=== PATIENT | male | born 1940 | race Caucasian/White ===

== ENCOUNTER 2017-03-31 19:59 | Inpatient (IN) | payer MEDICARE ==
[2017-03-31] MEDS ORDERED: Sodium Chloride 0.9% 1,000 ML IV ONE ×2 (20:26→20:27)
[2017-03-31] MEDS ORDERED: Iohexol 240 (50 ml) PO ONE (20:27)
--- NOTE | 2017-03-31 20:30 | C.PDOC ---
History Of Present Illness 76 year old male presents to the ED c/o abdominal pain associated with nausea, vomit, and diarrhea that started today after he ate sardines. Chief Complaint (Nursing): Abdominal Pain History Per: Patient History/Exam Limitations: no limitations Onset/Duration Of Symptoms: Hrs Current Symptoms Are (Timing): Still Present Context: Food (Sardines) Location Of Pain/Discomfort: Epigastric Quality Of Discomfort: "Pain" Associated Symptoms: Nausea, Vomiting, Diarrhea Exacerbating Factors: Food Alleviating Factors: None Recent travel outside of the [place]: No Additional History Per: Patient Past Medical History Reviewed: Historical Data, Nursing Documentation, Vital Signs Vital Signs: Last Vital Signs Temp 97.7 F 03/31/17 20:09 Pulse 108 H 03/31/17 20:09 Resp 20 03/31/17 20:09 BP 108/70 03/31/17 20:09 Pulse Ox 98 04/01/17 01:11 - Medical History PMH: Diabetes, Hypercholesterolemia Denies: Chronic Kidney Disease Surgical History: No Surg Hx - [facility] Procedures DILATION OF 1 COR ART WITH DRUG-ELUT INTRALUM, PERC APPROACH (03/01/15) INTRODUCTION OF VASOPRESSOR INTO PERIPH VEIN, PERC APPROACH (03/01/15) MEASURE CARDIAC SAMPL & PRESSURE, BILATERAL, PERC (03/01/15) PLAIN RADIOGRAPHY OF SINGLE COR ART USING OTH CONTRAST (03/01/15) Family History: States: Unknown Family Hx - Social History Hx Tobacco Use: No Hx Alcohol Use: No Hx Substance Use: No - Immunization History Hx Tetanus Toxoid Vaccination: No Hx Influenza Vaccination: No Hx Pneumococcal Vaccination: No Review Of Systems Constitutional: Negative for: Fever, Chills, Sweats Cardiovascular: Negative for: Chest Pain, Palpitations Respiratory: Negative for: Cough, Shortness of Breath Gastrointestinal: Positive for: Nausea, Vomiting, Abdominal Pain, Diarrhea Genitourinary: Negative for: Dysuria, Hematuria Neurological: Negative for: Weakness, Numbness Physical Exam - Physical Exam Appears: In Acute Distress (Moderate ) Skin: Normal Color, Warm, Dry Head: Atraumatic, Normacephalic Oral Mucosa: Moist Neck: Normal ROM, Supple Chest: Symmetrical Cardiovascular: Rhythm Regular, No Murmur Respiratory: Normal Breath Sounds, No Rales, No Rhonchi, No Wheezing Gastrointestinal/Abdominal: Bowel Sounds (hyperactive ), Tenderness (Mid abdomen , epigastric area), No Guarding, No Rebound Extremity: Normal ROM, No Pedal Edema, No Calf Tenderness, No Swelling Neurological/Psych: Oriented x3, Normal Speech, Normal Cognition Gait: Steady ED Course And Treatment - Laboratory Results Result Diagrams: 03/31/17 21:11 03/31/17 21:11 O2 Sat by Pulse Oximetry: 98 (On RA) Pulse Ox Interpretation: Normal - CT Scan/US CT abdo/pelvis Other Rad Studies (CT/US): Interpreted By Me, Read By Radiologist, Radiology Report Reviewed CT/US Interpretation: EXAM: CT Abdomen and Pelvis With Intravenous Contrast. CLINICAL HISTORY: 76 years old, male; Pain and signs and symptoms; Vomiting; Abdominal pain; Localized; Upper;. Additional info: Upper and n midabdomnal pain. TECHNIQUE: Axial computed tomography images of the abdomen and pelvis with intravenous contrast. All CT. scans at this facility use one or more dose reduction techniques, viz.: automated exposure control;. ma/kV adjustment per patient size (including targeted exams where dose is matched to indication; i.e. head); or iterative reconstruction technique. Coronal and sagittal reformatted images were created and reviewed. CONTRAST: 100 mL of omnipaque 300 administered intravenously. COMPARISON: No relevant prior studies available. FINDINGS: Lower thorax: The bilateral lung bases are clear. ABDOMEN: Liver: steatosis. Gallbladder and bile ducts: The gallbladder is only minimally distended, without calcified stones. No. significant intra- or extrahepatic biliary ductal dilation. Pancreas: Enhances homogeneously. No ductal dilation. No discrete mass. Spleen: No acute findings. Adrenals: No acute findings. Kidneys and ureters: No acute findings. No hydronephrosis or renal calculi. No discrete solid mass. PELVIS: Bladder: No acute findings. Reproductive: A penile prosthetic is identified with a pump extending into the right hemipelvis. Appendix: The appendix is of normal caliber (series 3, image 130) . ABDOMEN and PELVIS: Stomach and bowel: Moderate gastric distention, with an air-fluid level of contrast. No oral contrast is. identified beyond the first portion of the duodenum. No mucosal thickening. A fat containing left. inguinal hernia is identified. Peritoneum: No significant fluid collection. No free air. Lymph nodes: No pathologically enlarged lymph nodes. Vasculature: Calcified atherosclerotic disease. Bones: No acute fracture. IMPRESSION: Moderate gastric distention with an air-fluid level of contrast without oral contrast extending beyond. the first portion of the duodenum. Medical Decision Making Medical Decision Making: Impression : 76 y/o male with abdominal pain Plan: * CT abdomen/pelvis ordered * Blood work ordered * IV fluids, Dilaudid 2 mg IVP, Omnipaque 50 ml PO, Zofran 4 mg IVP given * UA ordered Patient was moved after results came back 1000 cc taken from [facility], called Dr. Duarte and awaiting fro response. Disposition Discussed With Dr.: Manpreet Duarte Jr. Doctor Will See Patient In The: Hospital Counseled Patient/Family Regarding: Diagnosis - Disposition Referrals: Manpreet Duarte Jr., MD [Medical Doctor] - Disposition: HOSPITALIZED Disposition Time: 01:10 Condition: STABLE Forms: [facility] (Kyrgyz) - POA Present On Arrival: None - Clinical Impression Clinical Impression: Abdominal pain, Gastric outlet obstruction - Scribe Statement The provider has reviewed the documentation as recorded by the Scribe Vinay Steinberg All medical record entries made by the Scribe were at my direction and personally dictated by me. I have reviewed the chart and agree that the record accurately reflects my personal performance of the history, physical exam, medical decision making, and the department course for this patient. I have also personally directed, reviewed, and agree with the discharge instructions and disposition.
[2017-03-31 21:14] LABS: BASO % 0.3 % (0.0-2.0); EOS # 0.3 K/uL (0.0-0.7); EOS % 3.6 % (0.0-4.0); HEMATOCRIT 49.7 % (35.0-51.0); LYMPH # 0.8 K/uL (1.0-4.3); LYMPH % 11.3 % (20.0-40.0); MEAN CELL VOLUME 88.2 fL (80.0-94.0); MEAN CORPUSCULAR HEMOGLOBIN 29.9 pg (27.0-31.0); MEAN CORPUSCULAR HGB CONC 33.9 g/dL (33.0-37.0); MEAN PLATELET VOLUME 8.4 fL (7.2-11.7); MONO # 0.3 K/uL (0.0-0.8); MONO % 4.4 % (0.0-10.0); RED CELL DISTRIBUTION WIDTH 13.5 % (11.5-14.5); WHITE BLOOD COUNT 7.2 K/uL (4.8-10.8)
[2017-03-31] MEDS ORDERED: Sodium Chloride 0.9% 1,000 ML ONE ×2 (21:15)
[2017-03-31] MEDS ORDERED: Iohexol 240 (50 ml) ONE (21:24)
[2017-03-31 21:26] LABS: ALB/GLOB RATIO 1.6 (1.0-2.1); ALKALINE PHOSPHATASE 81 U/L (38-126); ALT/SGPT 113 U/L (21-72); AST/SGOT 60 U/L (17-59); BILIRUBIN,TOTAL 1.4 mg/dL (0.2-1.3); BLOOD UREA NITROGEN 13 mg/dL (9-20); CALCIUM 8.9 mg/dl (8.6-10.4); CARBON DIOXIDE 27 mmol/L (22-30); CHLORIDE 101 mmol/L (98-107); GFR AFRICAN-AMERICAN > 60; GLUCOSE,RANDOM 112 mg/dL (75-110); POTASSIUM 4.5 mmol/L (3.6-5.2); SODIUM 136 mmol/L (132-148)
[2017-03-31] MEDS ORDERED: Iohexol 300 100 ML IJ ONE (21:52)
--- NOTE | 2017-03-31 23:27 | CT ---
EXAM: CT Abdomen and Pelvis With Intravenous Contrast CLINICAL HISTORY: 76 years old, male; Pain and signs and symptoms; Vomiting; Abdominal pain; Localized; Upper; Additional info: Upper and n midabdomnal pain TECHNIQUE: Axial computed tomography images of the abdomen and pelvis with intravenous contrast. All CT scans at this facility use one or more dose reduction techniques, viz.: automated exposure control; ma/kV adjustment per patient size (including targeted exams where dose is matched to indication; i.e. head); or iterative reconstruction technique. Coronal and sagittal reformatted images were created and reviewed. CONTRAST: 100 mL of omnipaque 300 administered intravenously. COMPARISON: No relevant prior studies available. FINDINGS: Lower thorax: The bilateral lung bases are clear. ABDOMEN: Liver: steatosis. Gallbladder and bile ducts: The gallbladder is only minimally distended, without calcified stones. No significant intra- or extrahepatic biliary ductal dilation. Pancreas: Enhances homogeneously. No ductal dilation. No discrete mass. Spleen: No acute findings. Adrenals: No acute findings. Kidneys and ureters: No acute findings. No hydronephrosis or renal calculi. No discrete solid mass. PELVIS: Bladder: No acute findings. Reproductive: A penile prosthetic is identified with a pump extending into the right hemipelvis. Appendix: The appendix is of normal caliber (series 3, image 130) . ABDOMEN and PELVIS: Stomach and bowel: Moderate gastric distention, with an air-fluid level of contrast. No oral contrast is identified beyond the first portion of the duodenum. No mucosal thickening. A fat containing left inguinal hernia is identified. Peritoneum: No significant fluid collection. No free air. Lymph nodes: No pathologically enlarged lymph nodes. Vasculature: Calcified atherosclerotic disease. Bones: No acute fracture. IMPRESSION: Moderate gastric distention with an air-fluid level of contrast without oral contrast extending beyond the first portion of the duodenum.
--- NOTE | 2017-04-01 01:30 | CP.PCM.HP ---
History of Present Illness - History of Present Illness History of Present Illness: CC: "My stomach started hurting after eating sardines" HPI: Patient is a 76 year old male, with PMHx of impaired glucose tolerance , STEMI, CAD, and hyperlipidemia, presenting to [facility] complaining of abdominal pain. Patient reports abdominal pain began shortly after "eating a can of sardines around 9am." He states he began to feel pain located in his epigastric area, that has worsened throughout the day. He describes the pain as a constant "aching pain in his belly" and rated the initial pain as 8/10 on the severity scale. The pain also became associated with nausea, and 3-4 episodes of non-bloody vomiting, as well as diarrhea 2-3 times. He attempted to ameliorate symptoms with milk of magnesia but when his symptoms did not improve he decided to go to the ED. Patient denies fever, chills, chest pain, palpitatations, hematochezia, hemoptysis, hematuria. 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 Allergies: NKDA Home meds: ASA 325mg Daily, Atorvastatin 40mg Daily Present on Admission - Present on Admission Any Indicators Present on Admission: No Review of Systems - Constitutional Constitutional: absent: Chills, Fever - EENT Eyes: absent: Change in Vision Ears: absent: Decreased Hearing - Cardiovascular Cardiovascular: absent: Chest Pain, Chest Pain at Rest, Dyspnea, Dyspnea on Exertion - Respiratory Respiratory: absent: Cough, Hemoptysis, Chest Congestion - Gastrointestinal Gastrointestinal: Abdominal Pain, Cramping, Diarrhea, Nausea, Vomiting - Genitourinary Genitourinary: absent: Dysuria - Integumentary Integumentary: absent: Dry Skin, Wounds - Neurological Neurological: absent: Confusion, Tingling, Weakness - Psychiatric Psychiatric: absent: Anxiety, Depression - Endocrine Endocrine: absent: Polydipsia, Polyphagia, Polyuria Past Patient History - Past Medical History & Family History Past Medical History?: Yes - Past Social History Smoking Status: Never Smoked - CARDIAC Hx Hypercholesterolemia: Yes - PULMONARY Hx Respiratory Disorders: No - NEUROLOGICAL Hx Neurological Disorder: No - HEENT Hx HEENT Problems: No - RENAL Hx Chronic Kidney Disease: No - ENDOCRINE/METABOLIC Hx Endocrine Disorders: No - HEMATOLOGICAL/ONCOLOGICAL Hx Blood Disorders: No - INTEGUMENTARY Hx Dermatological Problems: No - MUSCULOSKELETAL/RHEUMATOLOGICAL Hx Musculoskeletal Disorders: No - GASTROINTESTINAL Hx Gastrointestinal Disorders: No - GENITOURINARY/GYNECOLOGICAL Hx Genitourinary Disorders: No - PSYCHIATRIC Hx Substance Use: No - SURGICAL HISTORY Hx Surgeries: No - ANESTHESIA Hx Anesthesia: No Meds Allergies/Adverse Reactions: Allergies Allergy/AdvReac Type Severity Reaction Status Date / Time No Known Allergies Allergy Unverified 01/11/13 13:46 Physical Exam - Constitutional Appears: Non-toxic, No Acute Distress - Head Exam Head Exam: ATRAUMATIC, NORMOCEPHALIC - Eye Exam Eye Exam: EOMI, Normal appearance - ENT Exam ENT Exam: Mucous Membranes Moist Additional comments: NGT placed - ~1000cc drainage - Respiratory Exam Respiratory Exam: Clear to Auscultation Bilateral, NORMAL BREATHING PATTERN. absent: Rales, Rhonchi, Wheezes - Cardiovascular Exam Cardiovascular Exam: REGULAR RHYTHM, +S1, +S2. absent: Systolic Murmur - GI/Abdominal Exam GI & Abdominal Exam: Soft, Tenderness (epigastric area). absent: Distended, Guarding, Rebound, Rigid - Extremities Exam Extremities exam: Positive for: normal inspection. Negative for: pedal edema, tenderness - Back Exam Back exam: absent: CVA tenderness (L), CVA tenderness (R) - Neurological Exam Neurological exam: Alert, Oriented x3 - Psychiatric Exam Psychiatric exam: Normal Affect, Normal Mood - Skin Skin Exam: Dry, Normal Color, Warm Results - Vital Signs Recent Vital Signs: Last Vital Signs Temp 97.7 F 03/31/17 20:09 Pulse 108 H 03/31/17 20:09 Resp 20 03/31/17 20:09 BP 108/70 03/31/17 20:09 Pulse Ox 98 04/01/17 01:12 - Labs Result Diagrams: 04/01/17 08:12 03/31/17 21:11 Labs: Laboratory Results - last 24 hr 03/31/17 03/31/17 21:11 21:11 WBC 7.2 RBC 5.63 Hgb 16.8 D Hct 49.7 MCV 88.2 MCH 29.9 MCHC 33.9 RDW 13.5 Plt Count 184 MPV 8.4 Neut % (Auto) 80.4 H Lymph % (Auto) 11.3 L Haralson % (Auto) 4.4 Eos % (Auto) 3.6 Baso % (Auto) 0.3 Neut # 5.8 Lymph # 0.8 L Haralson # 0.3 Eos # 0.3 Baso # 0.0 Sodium 136 Potassium 4.5 Chloride 101 Carbon Dioxide 27 Anion Gap 13 BUN 13 Creatinine 0.9 Est GFR ( Amer) > 60 Est GFR (Non-Af Amer) > 60 Random Glucose 112 H Calcium 8.9 Total Bilirubin 1.4 H AST 60 H ALT 113 H D Alkaline Phosphatase 81 Total Protein 7.0 Albumin 4.3 Globulin 2.7 Albumin/Globulin Ratio 1.6 Lipase 57 Serum Ketones Negative Assessment & Plan - Assessment and Plan (Free Text) Plan: Gastric outlet obstruction Admit to med/surg NPO Diet VSS, afebrile NGT Tube inserted by ED - ~1000cc stomach fluid removed Dr. Dominguez, Gen [facility] so[facility] consultant: help appreciated CT A/P (04/01/17): Moderate gastric distention with an air-fluid level of contrast without oral contrast extending beyond the first portion of the duodenum. Lipase 57 Dilaudid 0.5mg IV Q6H PRN moderate pain Dilaudid 1mg IV Q6H PRN severe pain NS @ 100cc/hr -NS 2L given in ED Zofran 4mg IV Q4H PRN Impaired glucose tolerance A1C (2014): 5.9 - pt denies interim diabetes diagnosis f/u A1C Transaminitis Perhaps secondary to hepatic steatosis CT A/P (04/01/17): ABDOMEN: Liver: steatosis. Gallbladder and bile ducts: The gallbladder is only minimally distended, without calcified stones. No. significant intra- or extrahepatic biliary ductal dilation. 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 CAD Hx of stent placement (2014) Pt states he is no longer taking Plavix Hyperlipidemia f/u Lipid panel HOLD home Atorvastatin as pt NPO Prophylaxis Protonix 40mg IV Daily SCDs Heparin 5000u Q8H Matt Murch PGY-[address] Duarte
[2017-04-01] MEDS ORDERED: HYDROmorphone 0.5 mg/0.5 ml ISec IVP PRN (02:36)
--- NOTE | 2017-04-01 03:59 | CP.PCM.CON ---
History of Present Illness - History of Present Illness History of Present Illness: General Surgery Consult Note for Dr. Dominguez Reason for consult: Gastric outlet obstruction 76 year old male, with PMHx of impaired glucose tolerance, STEMI, CAD and HLD presents with complaint of abdominal pain. Patient reports abdominal he has had pain since yesterday morning. It began shortly after sardines around 9 am. He has never experienced this pain before. Patient reports sudden onset and it progressively had gotten worse. He rates pain as moderate. He describes pain as constant and aching located in epigastric area without radiation. Patient reports associated with nausea, 3 episodes of non-bloody vomiting, and multiple episodes of diarrhea. Patient took milk of magnesia but it did not help. Denies alleviating symptoms while eating/drinking exacerbates them. Patient is feeling better than before. Patient denies fever/chills, chest pain, palpitations, SOB. 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 Systems - Review of Systems All systems: reviewed and no additional remarkable complaints except (abdominal pain, nausea/vomting, diarrhea) Past Patient History - Past Medical History & Family History Past Medical History?: Yes - Past Social History Smoking Status: Never Smoked - CARDIAC Hx Hypercholesterolemia: Yes - PULMONARY Hx Respiratory Disorders: No - NEUROLOGICAL Hx Neurological Disorder: No - HEENT Hx HEENT Problems: No - RENAL Hx Chronic Kidney Disease: No - ENDOCRINE/METABOLIC Hx Endocrine Disorders: No - HEMATOLOGICAL/ONCOLOGICAL Hx Blood Disorders: No - INTEGUMENTARY Hx Dermatological Problems: No - MUSCULOSKELETAL/RHEUMATOLOGICAL Hx Musculoskeletal Disorders: No - GASTROINTESTINAL Hx Gastrointestinal Disorders: No - GENITOURINARY/GYNECOLOGICAL Hx Genitourinary Disorders: No - PSYCHIATRIC Hx Substance Use: No - SURGICAL HISTORY Hx Surgeries: No - ANESTHESIA Hx Anesthesia: No Meds Allergies/Adverse Reactions: Allergies Allergy/AdvReac Type Severity Reaction Status Date / Time No Known Allergies Allergy Unverified 01/11/13 13:46 - Medications Medications: Current Medications Heparin Sodium (Porcine) (Heparin) 5,000 units SC Q8 [facility] Hydromorphone HCl (Dilaudid) 0.5 mg IVP Q6H PRN PRN Reason: Pain, moderate (4-7) Hydromorphone HCl (Dilaudid) 1 mg IVP Q6H PRN PRN Reason: Pain, severe (8-10) Sodium Chloride (Sodium Chloride 0.9%) 1,000 mls @ 100 mls/hr IV .Q10H ONE Stop: 04/01/17 06:26 Last Admin: 04/01/17 02:52 Dose: 100 mls/hr Ondansetron HCl (Zofran Inj) 4 mg IVP Q6H PRN PRN Reason: Nausea/Vomiting Pantoprazole Sodium (Protonix Inj) 40 mg IVP DAILY [facility] Physical Exam - Constitutional Appears: No Acute Distress - Head Exam Head Exam: ATRAUMATIC, NORMOCEPHALIC - Eye Exam Eye Exam: EOMI, Normal appearance - ENT Exam ENT Exam: Mucous Membranes Moist - Respiratory Exam Respiratory Exam: NORMAL BREATHING PATTERN - Cardiovascular Exam Cardiovascular Exam: REGULAR RHYTHM - GI/Abdominal Exam GI & Abdominal Exam: Distended, Soft. absent: Firm, Guarding, Rebound, Rigid, Tenderness - Extremities Exam Extremities exam: Positive for: normal capillary refill, pedal pulses present - Back Exam Back exam: absent: CVA tenderness (L), CVA tenderness (R) - Neurological Exam Neurological exam: Alert, Oriented x3 - Psychiatric Exam Psychiatric exam: Normal Affect, Normal Mood - Skin Skin Exam: Dry, Intact, Normal Color, Warm Results - Vital Signs Recent Vital Signs: Last Vital Signs Temp 97.6 F 04/01/17 03:39 Pulse 78 04/01/17 03:39 Resp 20 04/01/17 03:39 BP 104/68 04/01/17 03:39 Pulse Ox 95 04/01/17 03:39 - Labs Result Diagrams: 03/31/17 21:11 03/31/17 21:11 Labs: Laboratory Results - last 24 hr 03/31/17 03/31/17 21:11 21:11 WBC 7.2 RBC 5.63 Hgb 16.8 D Hct 49.7 MCV 88.2 MCH 29.9 MCHC 33.9 RDW 13.5 Plt Count 184 MPV 8.4 Neut % (Auto) 80.4 H Lymph % (Auto) 11.3 L Whitfield % (Auto) 4.4 Eos % (Auto) 3.6 Baso % (Auto) 0.3 Neut # 5.8 Lymph # 0.8 L Whitfield # 0.3 Eos # 0.3 Baso # 0.0 Sodium 136 Potassium 4.5 Chloride 101 Carbon Dioxide 27 Anion Gap 13 BUN 13 Creatinine 0.9 Est GFR ( Amer) > 60 Est GFR (Non-Af Amer) > 60 Random Glucose 112 H Calcium 8.9 Total Bilirubin 1.4 H AST 60 H ALT 113 H D Alkaline Phosphatase 81 Total Protein 7.0 Albumin 4.3 Globulin 2.7 Albumin/Globulin Ratio 1.6 Lipase 57 Serum Ketones Negative Assessment & Plan - Assessment and Plan (Free Text) Plan: 76 M with Gastric outlet obstruction -Ng tube, monitor output -Analgesics/Anti-emetics PRN -Management as per primary -Discussed with Dr. Alberto Vincent PGY1
[2017-04-01] MEDS: HYDROmorphone 1 mg/ml ISec IVP PRN (04:04)
[2017-04-01 08:17] LABS: BASO % 0.1 % (0.0-2.0); EOS % 0.9 % (0.0-4.0); HEMATOCRIT 46.9 % (35.0-51.0); LYMPH # 0.8 K/uL (1.0-4.3); LYMPH % 14.4 % (20.0-40.0); MEAN CELL VOLUME 88.9 fL (80.0-94.0); MEAN CORPUSCULAR HEMOGLOBIN 29.5 pg (27.0-31.0); MEAN CORPUSCULAR HGB CONC 33.2 g/dL (33.0-37.0); MEAN PLATELET VOLUME 9.2 fL (7.2-11.7); MONO # 0.2 K/uL (0.0-0.8); MONO % 4.2 % (0.0-10.0); NRBC % 0.1 % (0.0-2.0); RED CELL DISTRIBUTION WIDTH 13.9 % (11.5-14.5); WHITE BLOOD COUNT 5.3 K/uL (4.8-10.8)
[2017-04-01 09:44] LABS: ALB/GLOB RATIO 1.5 (1.0-2.1); ALKALINE PHOSPHATASE 69 U/L (38-126); ALT/SGPT 84 U/L (21-72); AST/SGOT 64 U/L (17-59); BILIRUBIN,TOTAL 1.1 mg/dL (0.2-1.3); BLOOD UREA NITROGEN 13 mg/dL (9-20); CARBON DIOXIDE 23 mmol/L (22-30); CHLORIDE 102 mmol/L (98-107); CHOLESTEROL 99 mg/dL (0-199); GFR AFRICAN-AMERICAN > 60; GLUCOSE,RANDOM 102 mg/dL (75-110); MAGNESIUM 1.8 mg/dL (1.6-2.3); PHOSPHOROUS 3.8 mg/dL (2.5-4.5); POTASSIUM 4.2 mmol/L (3.6-5.2); SODIUM 136 mmol/L (132-148); TOTAL PROTEIN 6.3 g/dL (6.3-8.3)
[2017-04-01] MEDS: Potassium Ch 20mEq in D5-1/2NS 1,000 ML IV SCH ×2 (10:34→18:47)
--- NOTE | 2017-04-01 10:55 | CP.PCM.PN ---
Subjective - Date & Time of Evaluation Date of Evaluation: 04/01/17 Time of Evaluation: 10:53 - Subjective Subjective: Patient seen and examined at bedside Doing much better today states less belly pain Less distended NGT Objective - Vital Signs/Intake and Output Vital Signs (last 24 hours): Temp Pulse Resp BP Pulse Ox 97.6 F 94 H 18 127/80 96 04/01/17 07:25 04/01/17 10:47 04/01/17 07:25 04/01/17 10:47 04/01/17 07:25 - Medications Medications: Current Medications Heparin Sodium (Porcine) (Heparin) 5,000 units SC Q8 [facility] Last Admin: 04/01/17 05:38 Dose: 5,000 units Hydromorphone HCl (Dilaudid) 0.5 mg IVP Q6H PRN PRN Reason: Pain, moderate (4-7) Last Admin: 04/01/17 10:47 Dose: 0.5 mg Hydromorphone HCl (Dilaudid) 1 mg IVP Q6H PRN PRN Reason: Pain, severe (8-10) Last Admin: 04/01/17 04:04 Dose: 1 mg Potassium Chloride/Dextrose/Sod Cl (Potassium Chl 20 Meq In D5-1/2ns) 1,000 mls @ 130 mls/hr IV .Q7H42M [facility] Last Admin: 04/01/17 10:34 Dose: 130 mls/hr Ondansetron HCl (Zofran Inj) 4 mg IVP Q6H PRN PRN Reason: Nausea/Vomiting Pantoprazole Sodium (Protonix Inj) 40 mg IVP DAILY [facility] Last Admin: 04/01/17 09:18 Dose: 40 mg Pneumococcal Polyvalent Vaccine (Pneumovax 23 Vaccine) 0.5 ml IM .ONCE ONE Stop: 04/04/17 14:01 - Labs Labs: 04/01/17 08:12 04/01/17 09:29 - Constitutional Appears: Well, Non-toxic, No Acute Distress - Head Exam Head Exam: ATRAUMATIC, NORMAL INSPECTION, NORMOCEPHALIC - Eye Exam Eye Exam: EOMI Pupil Exam: NORMAL ACCOMODATION - ENT Exam ENT Exam: Mucous Membranes Moist Additional comments: NGT - Respiratory Exam Respiratory Exam: Clear to Ausculation Bilateral, NORMAL BREATHING PATTERN - Cardiovascular Exam Cardiovascular Exam: REGULAR RHYTHM - GI/Abdominal Exam GI & Abdominal Exam: Soft, Normal Bowel Sounds. absent: Tenderness - Extremities Exam Extremities Exam: Full ROM. absent: Joint Swelling, Tenderness - Neurological Exam Neurological Exam: Alert, Awake, Oriented x3 - Psychiatric Exam Psychiatric exam: Normal Affect, Normal Mood - Skin Skin Exam: Dry, Intact, Normal Color, Warm Assessment and Plan (1) Gastric outlet obstruction Assessment & Plan: NPO NGT * 1000cc output in ED * 150cc overnight, gastric contents Surgery ([facility]) GI ([facility]) CT A/P (04/01/17): Moderate gastric distention with an air-fluid level of contrast without oral contrast extending beyond the first portion of the duodenum. Dilaudid 0.5mg IV Q6H PRN moderate pain Dilaudid 1mg IV Q6H PRN severe pain NS @ 100cc/hr Zofran 4mg IV Q4H PRN Status: Acute (2) Impaired glucose metabolism Assessment & Plan: A1C (2015): 5.9 A1C 6 today Status: Chronic (3) Transaminitis Assessment & Plan: Perhaps secondary to hepatic steatosis CT A/P (04/01/17): hepatic steatosis Hep Panel - negative Status: Acute (4) Prophylactic measure Assessment & Plan: Protonix 40mg IV Daily SCDs Heparin 5000u Q8H Status: Acute
[2017-04-02] MEDS: Potassium Ch 20mEq in D5-1/2NS 1,000 ML IV SCH ×3 (01:00→22:36)
--- NOTE | 2017-04-02 10:07 | CP.PCM.PN ---
Subjective - Date & Time of Evaluation Date of Evaluation: 04/02/17 Time of Evaluation: 09:41 - Subjective Subjective: Patient seen and examined at bedside. Doing well with no complaints at this time. Objective - Vital Signs/Intake and Output Vital Signs (last 24 hours): Temp Pulse Resp BP Pulse Ox 98.3 F 85 18 95/59 L 95 04/02/17 08:07 04/02/17 08:07 04/02/17 08:07 04/02/17 08:07 04/02/17 08:07 Intake and Output: 04/02/17 04/02/17 06:59 18:59 Intake Total 2000 Output Total 1400 Balance 600 - Medications Medications: Current Medications Acetaminophen (Tylenol 325mg Tab) 650 mg PO Q6 PRN PRN Reason: Pain, Mild (1-3) Last Admin: 04/01/17 18:47 Dose: 650 mg Heparin Sodium (Porcine) (Heparin) 5,000 units SC Q8 [facility] Last Admin: 04/02/17 05:39 Dose: 5,000 units Hydromorphone HCl (Dilaudid) 0.5 mg IVP Q6H PRN PRN Reason: Pain, moderate (4-7) Last Admin: 04/01/17 10:47 Dose: 0.5 mg Hydromorphone HCl (Dilaudid) 1 mg IVP Q6H PRN PRN Reason: Pain, severe (8-10) Last Admin: 04/01/17 04:04 Dose: 1 mg Potassium Chloride/Dextrose/Sod Cl (Potassium Chl 20 Meq In D5-1/2ns) 1,000 mls @ 130 mls/hr IV .Q7H42M [facility] Last Admin: 04/02/17 01:00 Dose: Not Given Ondansetron HCl (Zofran Inj) 4 mg IVP Q6H PRN PRN Reason: Nausea/Vomiting Pantoprazole Sodium (Protonix Inj) 40 mg IVP DAILY [facility] Last Admin: 04/01/17 09:18 Dose: 40 mg Pneumococcal Polyvalent Vaccine (Pneumovax 23 Vaccine) 0.5 ml IM .ONCE ONE Stop: 04/04/17 14:01 - Labs Labs: 04/01/17 08:12 04/01/17 09:29 - Additional Findings Additional findings: - Constitutional Appears: Well, Non-toxic, No Acute Distress - Head Exam Head Exam: ATRAUMATIC, NORMAL INSPECTION, NORMOCEPHALIC - Eye Exam Eye Exam: EOMI Pupil Exam: NORMAL ACCOMODATION - ENT Exam ENT Exam: Mucous Membranes Moist Additional comments: NGT - Respiratory Exam Respiratory Exam: Clear to Ausculation Bilateral, NORMAL BREATHING PATTERN - Cardiovascular Exam Cardiovascular Exam: REGULAR RHYTHM - GI/Abdominal Exam GI & Abdominal Exam: Soft, Normal Bowel Sounds. absent: Tenderness - Extremities Exam Extremities Exam: Full ROM. absent: Joint Swelling, Tenderness - Neurological Exam Neurological Exam: Alert, Awake, Oriented x3 - Psychiatric Exam Psychiatric exam: Normal Affect, Normal Mood - Skin Skin Exam: Dry, Intact, Normal Color, Warm Assessment and Plan (1) Gastric outlet obstruction Assessment & Plan: NPO NGT * 1000cc output in ED * 150cc overnight, gastric contents Surgery (Alberto) * clamp NGT GI (Brenda) * liquid diet CT A/P (04/01/17): Moderate gastric distention with an air-fluid level of contrast without oral contrast extending beyond the first portion of the duodenum. Dilaudid 0.5mg IV Q6H PRN moderate pain Dilaudid 1mg IV Q6H PRN severe pain NS @ 100cc/hr Zofran 4mg IV Q4H PRN Status: Acute (2) Impaired glucose metabolism Assessment & Plan: A1C (2015): 5.9 A1C 6 today Status: Chronic (3) Transaminitis Assessment & Plan: Perhaps secondary to hepatic steatosis CT A/P (04/01/17): hepatic steatosis Hep Panel - negative Status: Acute (4) Prophylactic measure Assessment & Plan: Protonix 40mg IV Daily SCDs Heparin 5000u Q8H Status: Acute
[2017-04-02] MEDS: HYDROmorphone 1 mg/ml ISec IVP PRN (10:30)
[2017-04-02 11:28] LABS: BASO % 0.3 % (0.0-2.0); EOS # 0.2 K/uL (0.0-0.7); HEMATOCRIT 47.5 % (35.0-51.0); LYMPH # 2.1 K/uL (1.0-4.3); MEAN CELL VOLUME 88.3 fL (80.0-94.0); MEAN CORPUSCULAR HEMOGLOBIN 29.9 pg (27.0-31.0); MEAN CORPUSCULAR HGB CONC 33.8 g/dL (33.0-37.0); MEAN PLATELET VOLUME 9.1 fL (7.2-11.7); MONO # 0.6 K/uL (0.0-0.8); MONO % 10.1 % (0.0-10.0); NRBC % 0.2 % (0.0-2.0); RED CELL DISTRIBUTION WIDTH 13.3 % (11.5-14.5)
[2017-04-02 11:41] LABS: ALKALINE PHOSPHATASE 68 U/L (38-126); ALT/SGPT 80 U/L (21-72); AST/SGOT 40 U/L (17-59); BILIRUBIN,TOTAL 0.7 mg/dL (0.2-1.3); BLOOD UREA NITROGEN 7 mg/dL (9-20); CALCIUM 8.6 mg/dl (8.6-10.4); CARBON DIOXIDE 28 mmol/L (22-30); CHLORIDE 101 mmol/L (98-107); GFR AFRICAN-AMERICAN > 60; GLUCOSE,RANDOM 103 mg/dL (75-110); POTASSIUM 3.8 mmol/L (3.6-5.2); SODIUM 137 mmol/L (132-148); TOTAL PROTEIN 7.3 g/dL (6.3-8.3)
--- NOTE | 2017-04-02 14:47 | CP.PCM.CON ---
History of Present Illness - History of Present Illness History of Present Illness: CC: Gastric outlet obstruction HPI: GI Service consult requested on this 76 year old man admitted with acute abdominal pain, nausea, and vomiting. On CT scan contrast did not pass beyond the duodenum and an obstruction is suspected. The stomach was decompressed with NG suction and patient today feels improvement. Patient's symptoms developed acutely 2 days ago after eating sardines. Seen by surgery. Review of Systems - Constitutional Constitutional: absent: Fever, Weakness - EENT Eyes: absent: Change in Vision Nose/Mouth/Throat: absent: Sore Throat - Cardiovascular Cardiovascular: absent: Chest Pain - Respiratory Respiratory: absent: Dyspnea - Gastrointestinal Gastrointestinal: Abdominal Pain, Nausea, Vomiting. absent: Hematochezia, Melena - Genitourinary Genitourinary: absent: Dysuria - Musculoskeletal Musculoskeletal: absent: Arthralgias - Integumentary Integumentary: absent: Jaundice - Neurological Neurological: absent: Syncope - Psychiatric Psychiatric: absent: Depression - Endocrine Endocrine: absent: Fatigue - Hematologic/Lymphatic Hematologic: absent: Easy Bleeding Past Patient History - Past Medical History & Family History Past Medical History?: Yes - Past Social History Smoking Status: Never Smoked - CARDIAC Hx Hypercholesterolemia: Yes - PULMONARY Hx Respiratory Disorders: No - NEUROLOGICAL Hx Neurological Disorder: No - HEENT Hx HEENT Problems: No - RENAL Hx Chronic Kidney Disease: No - ENDOCRINE/METABOLIC Hx Endocrine Disorders: No - HEMATOLOGICAL/ONCOLOGICAL Hx Blood Disorders: No - INTEGUMENTARY Hx Dermatological Problems: No - MUSCULOSKELETAL/RHEUMATOLOGICAL Hx Musculoskeletal Disorders: No - GASTROINTESTINAL Hx Gastrointestinal Disorders: No - GENITOURINARY/GYNECOLOGICAL Hx Genitourinary Disorders: No - PSYCHIATRIC Hx Substance Use: No - SURGICAL HISTORY Hx Surgeries: No - ANESTHESIA Hx Anesthesia: No Meds Allergies/Adverse Reactions: Allergies Allergy/AdvReac Type Severity Reaction Status Date / Time No Known Allergies Allergy Unverified 01/11/13 13:46 - Medications Medications: Current Medications Acetaminophen (Tylenol 325mg Tab) 650 mg PO Q6 PRN PRN Reason: Pain, Mild (1-3) Last Admin: 04/01/17 18:47 Dose: 650 mg Heparin Sodium (Porcine) (Heparin) 5,000 units SC Q8 [facility] Last Admin: 04/02/17 13:58 Dose: 5,000 units Hydromorphone HCl (Dilaudid) 0.5 mg IVP Q6H PRN PRN Reason: Pain, moderate (4-7) Last Admin: 04/01/17 10:47 Dose: 0.5 mg Hydromorphone HCl (Dilaudid) 1 mg IVP Q6H PRN PRN Reason: Pain, severe (8-10) Last Admin: 04/02/17 10:30 Dose: 1 mg Potassium Chloride/Dextrose/Sod Cl (Potassium Chl 20 Meq In D5-1/2ns) 1,000 mls @ 130 mls/hr IV .Q7H42M [facility] Last Admin: 04/02/17 10:00 Dose: 130 mls/hr Ondansetron HCl (Zofran Inj) 4 mg IVP Q6H PRN PRN Reason: Nausea/Vomiting Pantoprazole Sodium (Protonix Inj) 40 mg IVP DAILY [facility] Last Admin: 04/02/17 10:30 Dose: 40 mg Pneumococcal Polyvalent Vaccine (Pneumovax 23 Vaccine) 0.5 ml IM .ONCE ONE Stop: 04/04/17 14:01 Physical Exam - Constitutional Appears: Well, No Acute Distress - Head Exam Head Exam: ATRAUMATIC, NORMOCEPHALIC - Eye Exam Eye Exam: Normal appearance. absent: Scleral icterus - ENT Exam ENT Exam: Normal Exam - Neck Exam Neck exam: Positive for: Normal Inspection - Respiratory Exam Respiratory Exam: Clear to Auscultation Bilateral - Cardiovascular Exam Cardiovascular Exam: REGULAR RHYTHM - GI/Abdominal Exam GI & Abdominal Exam: Soft. absent: Distended, Mass, Tenderness - Rectal Exam Rectal Exam: Deferred - Back Exam Back exam: NORMAL INSPECTION - Neurological Exam Neurological exam: Alert, Oriented x3 - Psychiatric Exam Psychiatric exam: Normal Affect, Normal Mood - Skin Skin Exam: Normal Color Results - Vital Signs Recent Vital Signs: Last Vital Signs Temp 98.3 F 04/02/17 08:07 Pulse 85 04/02/17 08:07 Resp 18 04/02/17 08:07 BP 95/59 L 04/02/17 08:07 Pulse Ox 95 04/02/17 08:07 - Labs Result Diagrams: 04/02/17 11:12 04/02/17 11:12 Labs: Laboratory Results - last 24 hr 04/02/17 04/02/17 11:12 11:12 WBC 6.0 RBC 5.38 Hgb 16.1 Hct 47.5 MCV 88.3 MCH 29.9 MCHC 33.8 RDW 13.3 Plt Count 183 MPV 9.1 Neut % (Auto) 50.6 Lymph % (Auto) 35.0 [place] % (Auto) 10.1 H Eos % (Auto) 4.0 Baso % (Auto) 0.3 Neut # 3.0 Lymph # 2.1 E[place] # 0.6 Eos # 0.2 Baso # 0.0 Sodium 137 Potassium 3.8 Chloride 101 Carbon Dioxide 28 Anion Gap 13 BUN 7 L Creatinine 0.9 Est GFR ( Amer) > 60 Est GFR (Non-Af Amer) > 60 Random Glucose 103 Calcium 8.6 Total Bilirubin 0.7 AST 40 ALT 80 H Alkaline Phosphatase 68 Total Protein 7.3 Albumin 3.7 Globulin 3.6 Albumin/Globulin Ratio 1.0 Assessment & Plan (1) Gastric outlet obstruction Assessment and Plan: Clinically stable after NG decompression. R/O mechanical obstruction from peptic disease, stricture, etc. No tumor seen on CT scan. Rec: Trial clear liquid diet. Endoscopy when scheduling permits. Status: Acute (2) Transaminitis Assessment and Plan: Transient elevations. Trending down. Will monitor. Status: Acute (3) CAD (coronary artery disease) Assessment and Plan: Clinically stable Management per medical primary team Status: Chronic Priority: High
[2017-04-02] MEDS ORDERED: Lactated Ringer's 1,000 ML IV ONE (16:00)
[2017-04-02] MEDS ORDERED: Lidocaine Hydrochloride 5 ML INJ ONE (16:04)
[2017-04-02] MEDS ORDERED: Propofol 10 mg/ml Inj (20 ML) ONE (16:04)
--- NOTE | 2017-04-02 16:05 | CP.PCM.PN ---
Subjective - Date & Time of Evaluation Date of Evaluation: 04/02/17 Time of Evaluation: 06:55 - Subjective Subjective: General Surgery Note for Dr. Dominguez Patient seen and examined at bedside. No acute event overnight. Patient states abdominal pain has resolved. Denies nausea/vomiting. Patient asking for NG tube to be removed. Minimal output from NG tube overnight. Patient has no complaints at this time. Objective - Vital Signs/Intake and Output Vital Signs (last 24 hours): Temp Pulse Resp BP Pulse Ox 98.3 F 85 18 95/59 L 95 04/02/17 08:07 04/02/17 08:07 04/02/17 08:07 04/02/17 08:07 04/02/17 08:07 Intake and Output: 04/02/17 04/02/17 06:59 18:59 Intake Total 2000 1040 Output Total 1400 400 Balance 600 640 - Medications Medications: Current Medications Acetaminophen (Tylenol 325mg Tab) 650 mg PO Q6 PRN PRN Reason: Pain, Mild (1-3) Last Admin: 04/01/17 18:47 Dose: 650 mg Heparin Sodium (Porcine) (Heparin) 5,000 units SC Q8 [facility] Last Admin: 04/02/17 13:58 Dose: 5,000 units Hydromorphone HCl (Dilaudid) 0.5 mg IVP Q6H PRN PRN Reason: Pain, moderate (4-7) Last Admin: 04/01/17 10:47 Dose: 0.5 mg Hydromorphone HCl (Dilaudid) 1 mg IVP Q6H PRN PRN Reason: Pain, severe (8-10) Last Admin: 04/02/17 10:30 Dose: 1 mg Potassium Chloride/Dextrose/Sod Cl (Potassium Chl 20 Meq In D5-1/2ns) 1,000 mls @ 130 mls/hr IV .Q7H42M [facility] Last Admin: 04/02/17 10:00 Dose: 130 mls/hr Ondansetron HCl (Zofran Inj) 4 mg IVP Q6H PRN PRN Reason: Nausea/Vomiting Pantoprazole Sodium (Protonix Inj) 40 mg IVP DAILY [facility] Last Admin: 04/02/17 10:30 Dose: 40 mg Pneumococcal Polyvalent Vaccine (Pneumovax 23 Vaccine) 0.5 ml IM .ONCE ONE Stop: 04/04/17 14:01 - Labs Labs: 04/02/17 11:12 04/02/17 11:12 - Constitutional Appears: No Acute Distress - Head Exam Head Exam: ATRAUMATIC, NORMOCEPHALIC - Eye Exam Eye Exam: Normal appearance - ENT Exam ENT Exam: Mucous Membranes Moist - Respiratory Exam Respiratory Exam: NORMAL BREATHING PATTERN - Cardiovascular Exam Cardiovascular Exam: REGULAR RHYTHM - GI/Abdominal Exam GI & Abdominal Exam: Soft, Normal Bowel Sounds. absent: Distended, Firm, Guarding, Tenderness, Rebound - Extremities Exam Extremities Exam: Normal Capillary Refill - Back Exam Back Exam: absent: CVA tenderness (L), CVA tenderness (R) - Neurological Exam Neurological Exam: Alert, Awake, Oriented x3 - Psychiatric Exam Psychiatric exam: Normal Affect, Normal Mood - Skin Skin Exam: Dry, Intact, Normal Color, Warm Assessment and Plan - Assessment and Plan (Free Text) Plan: 76 M with Gastric outlet obstruction -Clamp Ng tube and check residuals -Analgesics/Anti-emetics PRN -Management as per primary -Discussed with Dr. Alberto Vincent PGY1
--- NOTE | 2017-04-02 23:44 | CP.PCM.CON ---
Past Patient History - Past Medical History & Family History Past Medical History?: Yes - Past Social History Smoking Status: Never Smoked - CARDIAC Hx Hypercholesterolemia: Yes - PULMONARY Hx Respiratory Disorders: No - NEUROLOGICAL Hx Neurological Disorder: No - HEENT Hx HEENT Problems: No - RENAL Hx Chronic Kidney Disease: No - ENDOCRINE/METABOLIC Hx Endocrine Disorders: No - HEMATOLOGICAL/ONCOLOGICAL Hx Blood Disorders: No - INTEGUMENTARY Hx Dermatological Problems: No - MUSCULOSKELETAL/RHEUMATOLOGICAL Hx Musculoskeletal Disorders: No - GASTROINTESTINAL Hx Gastrointestinal Disorders: No - GENITOURINARY/GYNECOLOGICAL Hx Genitourinary Disorders: No - PSYCHIATRIC Hx Substance Use: No - SURGICAL HISTORY Hx Surgeries: No - ANESTHESIA Hx Anesthesia: No Meds Allergies/Adverse Reactions: Allergies Allergy/AdvReac Type Severity Reaction Status Date / Time No Known Allergies Allergy Unverified 01/11/13 13:46 - Medications Medications: Current Medications Acetaminophen (Tylenol 325mg Tab) 650 mg PO Q6 PRN PRN Reason: Pain, Mild (1-3) Last Admin: 04/01/17 18:47 Dose: 650 mg Heparin Sodium (Porcine) (Heparin) 5,000 units SC Q8 [facility] Last Admin: 04/02/17 21:30 Dose: 5,000 units Hydromorphone HCl (Dilaudid) 0.5 mg IVP Q6H PRN PRN Reason: Pain, moderate (4-7) Last Admin: 04/01/17 10:47 Dose: 0.5 mg Hydromorphone HCl (Dilaudid) 1 mg IVP Q6H PRN PRN Reason: Pain, severe (8-10) Last Admin: 04/02/17 10:30 Dose: 1 mg Potassium Chloride/Dextrose/Sod Cl (Potassium Chl 20 Meq In D5-1/2ns) 1,000 mls @ 130 mls/hr IV .Q7H42M [facility] Last Admin: 04/02/17 22:36 Dose: Not Given Ondansetron HCl (Zofran Inj) 4 mg IVP Q6H PRN PRN Reason: Nausea/Vomiting Pantoprazole Sodium (Protonix Inj) 40 mg IVP DAILY [facility] Last Admin: 04/02/17 10:30 Dose: 40 mg Pneumococcal Polyvalent Vaccine (Pneumovax 23 Vaccine) 0.5 ml IM .ONCE ONE Stop: 04/04/17 14:01 Physical Exam - Constitutional Appears: Well - Head Exam Head Exam: ATRAUMATIC, NORMAL INSPECTION, NORMOCEPHALIC - Eye Exam Eye Exam: EOMI, Normal appearance, PERRL Pupil Exam: NORMAL ACCOMODATION, PERRL - ENT Exam ENT Exam: Mucous Membranes Moist, Normal Exam - Neck Exam Neck exam: Positive for: Normal Inspection - Respiratory Exam Respiratory Exam: Decreased Breath Sounds - Cardiovascular Exam Cardiovascular Exam: REGULAR RHYTHM, +S1, +S2 - GI/Abdominal Exam GI & Abdominal Exam: Diminished Bowel Sounds, Soft - Rectal Exam Rectal Exam: Deferred Results - Vital Signs Recent Vital Signs: Last Vital Signs Temp 97.5 F L 04/02/17 18:00 Pulse 89 04/02/17 18:00 Resp 18 04/02/17 18:00 BP 135/80 04/02/17 18:00 Pulse Ox 95 04/02/17 18:00 - Labs Result Diagrams: 04/02/17 11:12 04/02/17 11:12 Labs: Laboratory Results - last 24 hr 04/02/17 04/02/17 11:12 11:12 WBC 6.0 RBC 5.38 Hgb 16.1 Hct 47.5 MCV 88.3 MCH 29.9 MCHC 33.8 RDW 13.3 Plt Count 183 MPV 9.1 Neut % (Auto) 50.6 Lymph % (Auto) 35.0 [place] % (Auto) 10.1 H Eos % (Auto) 4.0 Baso % (Auto) 0.3 Neut # 3.0 Lymph # 2.1 [place] # 0.6 Eos # 0.2 Baso # 0.0 Sodium 137 Potassium 3.8 Chloride 101 Carbon Dioxide 28 Anion Gap 13 BUN 7 L Creatinine 0.9 Est GFR ( Amer) > 60 Est GFR (Non-Af Amer) > 60 Random Glucose 103 Calcium 8.6 Total Bilirubin 0.7 AST 40 ALT 80 H Alkaline Phosphatase 68 Total Protein 7.3 Albumin 3.7 Globulin 3.6 Albumin/Globulin Ratio 1.0
[2017-04-03 00:15] VITALS: RESP 20
[2017-04-03] MEDS: Potassium Ch 20mEq in D5-1/2NS 1,000 ML IV SCH ×2 (01:00→11:00)
[2017-04-03 07:32] LABS: BASO % 0.4 % (0.0-2.0); EOS # 0.3 K/uL (0.0-0.7); EOS % 5.3 % (0.0-4.0); HEMATOCRIT 45.3 % (35.0-51.0); LYMPH # 2.8 K/uL (1.0-4.3); LYMPH % 42.3 % (20.0-40.0); MEAN CELL VOLUME 87.3 fL (80.0-94.0); MEAN CORPUSCULAR HEMOGLOBIN 30.4 pg (27.0-31.0); MEAN CORPUSCULAR HGB CONC 34.8 g/dL (33.0-37.0); MEAN PLATELET VOLUME 8.9 fL (7.2-11.7); MONO # 0.6 K/uL (0.0-0.8); MONO % 9.8 % (0.0-10.0); NRBC % 0.1 % (0.0-2.0); RED CELL DISTRIBUTION WIDTH 13.6 % (11.5-14.5); WHITE BLOOD COUNT 6.6 K/uL (4.8-10.8)
[2017-04-03 08:20] LABS: ALB/GLOB RATIO 1.4 (1.0-2.1); ALKALINE PHOSPHATASE 59 U/L (38-126); ALT/SGPT 64 U/L (21-72); AST/SGOT 33 U/L (17-59); BILIRUBIN,TOTAL 0.9 mg/dL (0.2-1.3); BLOOD UREA NITROGEN 5 mg/dL (9-20); CALCIUM 8.6 mg/dl (8.6-10.4); CARBON DIOXIDE 28 mmol/L (22-30); CHLORIDE 102 mmol/L (98-107); GFR AFRICAN-AMERICAN > 60; GLUCOSE,RANDOM 107 mg/dL (75-110); POTASSIUM 3.9 mmol/L (3.6-5.2); SODIUM 137 mmol/L (132-148); TOTAL PROTEIN 5.9 g/dL (6.3-8.3)
--- NOTE | 2017-04-03 09:39 | CP.PCM.PN ---
Subjective - Date & Time of Evaluation Date of Evaluation: 04/03/17 Time of Evaluation: 07:30 - Subjective Subjective: General Surgery Dr. Dominguez Pt S&E @bedside. NAEO. pt has no complaints. wants to go home. Pt denies F/C, N/ V, abd pain, D/C. (+)BM. EGD yesterday revealed acute gastritis. Pt tolerating FLD. Objective - Vital Signs/Intake and Output Vital Signs (last 24 hours): Temp Pulse Resp BP Pulse Ox 98.4 F 77 20 101/66 94 L 04/03/17 07:00 04/03/17 07:00 04/03/17 07:00 04/03/17 07:00 04/03/17 07:00 Intake and Output: 04/03/17 04/03/17 06:59 18:59 Intake Total 1040 Output Total 400 Balance 640 - Medications Medications: Current Medications Acetaminophen (Tylenol 325mg Tab) 650 mg PO Q6 PRN PRN Reason: Pain, Mild (1-3) Last Admin: 04/01/17 18:47 Dose: 650 mg Heparin Sodium (Porcine) (Heparin) 5,000 units SC Q8 [facility] Last Admin: 04/03/17 05:40 Dose: 5,000 units Hydromorphone HCl (Dilaudid) 0.5 mg IVP Q6H PRN PRN Reason: Pain, moderate (4-7) Last Admin: 04/01/17 10:47 Dose: 0.5 mg Hydromorphone HCl (Dilaudid) 1 mg IVP Q6H PRN PRN Reason: Pain, severe (8-10) Last Admin: 04/02/17 10:30 Dose: 1 mg Potassium Chloride/Dextrose/Sod Cl (Potassium Chl 20 Meq In D5-1/2ns) 1,000 mls @ 130 mls/hr IV .Q7H42M [facility] Last Admin: 04/03/17 01:00 Dose: 130 mls/hr Ondansetron HCl (Zofran Inj) 4 mg IVP Q6H PRN PRN Reason: Nausea/Vomiting Pantoprazole Sodium (Protonix Inj) 40 mg IVP DAILY [facility] Last Admin: 04/02/17 10:30 Dose: 40 mg Pneumococcal Polyvalent Vaccine (Pneumovax 23 Vaccine) 0.5 ml IM .ONCE ONE Stop: 04/04/17 14:01 - Labs Labs: 04/03/17 07:00 04/03/17 07:00 - Constitutional Appears: Non-toxic, No Acute Distress - Head Exam Head Exam: NORMAL INSPECTION - Eye Exam Eye Exam: Normal appearance - ENT Exam ENT Exam: Mucous Membranes Moist - Respiratory Exam Respiratory Exam: NORMAL BREATHING PATTERN. absent: Accessory Muscle Use, Respiratory Distress - Cardiovascular Exam Cardiovascular Exam: absent: Bradycardia, Tachycardia - GI/Abdominal Exam GI & Abdominal Exam: Soft. absent: Distended, Guarding, Tenderness, Rebound - Neurological Exam Neurological Exam: Alert, Awake, Oriented x3 - Psychiatric Exam Psychiatric exam: Normal Affect, Normal Mood - Skin Skin Exam: Dry, Intact, Normal Color, Warm Assessment and Plan - Assessment and Plan (Free Text) Assessment: 76 y/o M w/ Gastric outlet obstruction - cont PPI therapy - cont pain management - f/u GI recs - f/u EGD Bx - cont medical management per PMD - no surgical intervention at this time Pt discussed w/ Dr. Alberto Hopkins DO PGY2
--- NOTE | 2017-04-03 10:23 | CP.PCM.PN ---
Subjective - Date & Time of Evaluation Date of Evaluation: 04/03/17 Time of Evaluation: 10:21 - Subjective Subjective: CC: Follow up abdominal pain Denies abdominal pain. Tolerating full liquids. Discussed with DR Dominguez- no mechanical obstruction seen on endoscopy. Objective - Vital Signs/Intake and Output Vital Signs (last 24 hours): Temp Pulse Resp BP Pulse Ox 98.4 F 77 20 101/66 94 L 04/03/17 07:00 04/03/17 07:00 04/03/17 07:00 04/03/17 07:00 04/03/17 07:00 Intake and Output: 04/03/17 04/03/17 06:59 18:59 Intake Total 1040 Output Total 400 Balance 640 - Medications Medications: Current Medications Acetaminophen (Tylenol 325mg Tab) 650 mg PO Q6 PRN PRN Reason: Pain, Mild (1-3) Last Admin: 04/01/17 18:47 Dose: 650 mg Heparin Sodium (Porcine) (Heparin) 5,000 units SC Q8 [facility] Last Admin: 04/03/17 05:40 Dose: 5,000 units Hydromorphone HCl (Dilaudid) 0.5 mg IVP Q6H PRN PRN Reason: Pain, moderate (4-7) Last Admin: 04/01/17 10:47 Dose: 0.5 mg Hydromorphone HCl (Dilaudid) 1 mg IVP Q6H PRN PRN Reason: Pain, severe (8-10) Last Admin: 04/02/17 10:30 Dose: 1 mg Potassium Chloride/Dextrose/Sod Cl (Potassium Chl 20 Meq In D5-1/2ns) 1,000 mls @ 130 mls/hr IV .Q7H42M [facility] Last Admin: 04/03/17 01:00 Dose: 130 mls/hr Ondansetron HCl (Zofran Inj) 4 mg IVP Q6H PRN PRN Reason: Nausea/Vomiting Pantoprazole Sodium (Protonix Inj) 40 mg IVP DAILY [facility] Last Admin: 04/02/17 10:30 Dose: 40 mg Pneumococcal Polyvalent Vaccine (Pneumovax 23 Vaccine) 0.5 ml IM .ONCE ONE Stop: 04/04/17 14:01 - Labs Labs: 04/03/17 07:00 04/03/17 07:00 - Constitutional Appears: Well, No Acute Distress - Head Exam Head Exam: NORMOCEPHALIC - Respiratory Exam Respiratory Exam: Clear to Ausculation Bilateral - Cardiovascular Exam Cardiovascular Exam: REGULAR RHYTHM - GI/Abdominal Exam GI & Abdominal Exam: Soft, Normal Bowel Sounds. absent: Tenderness Assessment and Plan (1) Gastric outlet obstruction Assessment & Plan: No obstruction on endoscopy. Tolerating diet at present without clinical signs of obstruction Rec: Advance to solid diet and if tolerated may be discharged home. Status: Acute (2) Transaminitis Assessment & Plan: Normalizing. Monitor Status: Acute (3) CAD (coronary artery disease) Assessment & Plan: Management per primary care team Status: Chronic (4) Gastritis Assessment & Plan: Gastritis noted on endoscopy/ Likely secondary to NG trauma. rec: Check pathology. Protonix PO Status: Acute
--- NOTE | 2017-04-03 16:06 | CP.PCM.PN ---
Subjective - Date & Time of Evaluation Date of Evaluation: 04/03/17 Time of Evaluation: 11:00 - Subjective Subjective: clinically same Objective - Vital Signs/Intake and Output Vital Signs (last 24 hours): Temp Pulse Resp BP Pulse Ox 98.4 F 77 20 101/66 94 L 04/03/17 07:00 04/03/17 07:00 04/03/17 07:00 04/03/17 07:00 04/03/17 07:00 Intake and Output: 04/03/17 04/03/17 06:59 18:59 Intake Total 1040 Output Total 400 Balance 640 - Medications Medications: Current Medications Acetaminophen (Tylenol 325mg Tab) 650 mg PO Q6 PRN PRN Reason: Pain, Mild (1-3) Last Admin: 04/01/17 18:47 Dose: 650 mg Heparin Sodium (Porcine) (Heparin) 5,000 units SC Q8 [facility] Last Admin: 04/03/17 13:22 Dose: 5,000 units Hydromorphone HCl (Dilaudid) 0.5 mg IVP Q6H PRN PRN Reason: Pain, moderate (4-7) Last Admin: 04/01/17 10:47 Dose: 0.5 mg Hydromorphone HCl (Dilaudid) 1 mg IVP Q6H PRN PRN Reason: Pain, severe (8-10) Last Admin: 04/02/17 10:30 Dose: 1 mg Potassium Chloride/Dextrose/Sod Cl (Potassium Chl 20 Meq In D5-1/2ns) 1,000 mls @ 130 mls/hr IV .Q7H42M [facility] Last Admin: 04/03/17 11:00 Dose: 130 mls/hr Ondansetron HCl (Zofran Inj) 4 mg IVP Q6H PRN PRN Reason: Nausea/Vomiting Pantoprazole Sodium (Protonix Inj) 40 mg IVP DAILY [facility] Last Admin: 04/03/17 10:32 Dose: 40 mg Pneumococcal Polyvalent Vaccine (Pneumovax 23 Vaccine) 0.5 ml IM .ONCE ONE Stop: 04/04/17 14:01 - Labs Labs: 04/03/17 07:00 04/03/17 07:00 - Constitutional Appears: Well - Head Exam Head Exam: ATRAUMATIC, NORMAL INSPECTION, NORMOCEPHALIC - Eye Exam Eye Exam: EOMI, Normal appearance, PERRL Pupil Exam: NORMAL ACCOMODATION, PERRL - ENT Exam ENT Exam: Mucous Membranes Moist, Normal Exam - Neck Exam Neck Exam: Full ROM, Normal Inspection. absent: Lymphadenopathy - Respiratory Exam Respiratory Exam: Decreased Breath Sounds - Cardiovascular Exam Cardiovascular Exam: REGULAR RHYTHM, +S1, +S2 - GI/Abdominal Exam GI & Abdominal Exam: Soft, Diminished Bowel Sounds - Rectal Exam Rectal Exam: Deferred
--- NOTE | 2017-04-03 16:45 | CP.PCM.PN ---
Subjective - Date & Time of Evaluation Date of Evaluation: 04/03/17 Time of Evaluation: 16:45 - Subjective Subjective: PATIENT WAS ADMITTED FOR GASTRIC OUTLET OBSTRUCTION ; Denies abdominal pain. Tolerating full liquids. ADVANCE TO SOLID FOOD AND PATIENT STILL TOLERATING; ALSO PATIENT HAD A BM LAST NIGHT NO SIGN DISTRESS NOTED Objective - Vital Signs/Intake and Output Vital Signs (last 24 hours): Temp Pulse Resp BP Pulse Ox 98.4 F 77 20 101/66 94 L 04/03/17 07:00 04/03/17 07:00 04/03/17 07:00 04/03/17 07:00 04/03/17 07:00 Intake and Output: 04/03/17 04/03/17 06:59 18:59 Intake Total 1040 Output Total 400 Balance 640 - Medications Medications: Current Medications Acetaminophen (Tylenol 325mg Tab) 650 mg PO Q6 PRN PRN Reason: Pain, Mild (1-3) Last Admin: 04/01/17 18:47 Dose: 650 mg Heparin Sodium (Porcine) (Heparin) 5,000 units SC Q8 [facility] Last Admin: 04/03/17 13:22 Dose: 5,000 units Hydromorphone HCl (Dilaudid) 0.5 mg IVP Q6H PRN PRN Reason: Pain, moderate (4-7) Last Admin: 04/01/17 10:47 Dose: 0.5 mg Hydromorphone HCl (Dilaudid) 1 mg IVP Q6H PRN PRN Reason: Pain, severe (8-10) Last Admin: 04/02/17 10:30 Dose: 1 mg Potassium Chloride/Dextrose/Sod Cl (Potassium Chl 20 Meq In D5-1/2ns) 1,000 mls @ 130 mls/hr IV .Q7H42M [facility] Last Admin: 04/03/17 11:00 Dose: 130 mls/hr Ondansetron HCl (Zofran Inj) 4 mg IVP Q6H PRN PRN Reason: Nausea/Vomiting Pantoprazole Sodium (Protonix Inj) 40 mg IVP DAILY [facility] Last Admin: 04/03/17 10:32 Dose: 40 mg Pneumococcal Polyvalent Vaccine (Pneumovax 23 Vaccine) 0.5 ml IM .ONCE ONE Stop: 04/04/17 14:01 - Labs Labs: 04/03/17 07:00 04/03/17 07:00 - Respiratory Exam Respiratory Exam: Clear to Ausculation Bilateral - Cardiovascular Exam Cardiovascular Exam: REGULAR RHYTHM - GI/Abdominal Exam GI & Abdominal Exam: Normal Bowel Sounds Assessment and Plan - Assessment and Plan (Free Text) Assessment: A/P PATIENT IS SEEN AND EXAMINED BY CAR MECHANIC HELPER CLEAR BY DR BOYER AND DR Amina ENRIQUE; POSITIVE BOWEL SOUND FOLLOW UP WITH DR CHRISTINE OR DR Amina ENRIQUE IN A WEEK ----CALL DR CHRISTINE OR DR ENRIQUE FOR APPOINTMENT FOLLOW UP WITH DR BOYER IN WEEK ---CALL HIS OFFICE FOR APPOINTMENT CONTINUE YOUR HOME MEDS USUAL CALL DR CHRISTINE OR DR ENRIQUE FOR ANY FURTHER QUESTION CALL DR ENRIQUE OR GO TO THE NEAREST ER IF SYMPTOMS RETURN OR WORSENING DISCUSS WITH PATIENT AND PATIENT'S WHO AGREE WITH THE DISCHARGE PLANNING
[2017-04-03 16:48] VITALS: BP 121/77; PULSE 78; TEMP 98.5; O2SAT 95
[2017-04-03] MEDS ORDERED: Pneumococcal 23-Valent Vaccine IM ONE (17:00)
[2017-04-04] MEDS ORDERED: Pneumococcal 23-Valent Vaccine IM ONE (14:00)
== END 2017-04-03 17:45 | disposition home or self-care (01) | DRG 382 ==
LOC: C.ER 19:59 → C.9E 04-01 02:10 → C.6T 04-01 03:17 → OBSVTOIN 04-02 09:39
PROVIDERS: ADMIT Internal Medicine; ATTEND Internal Medicine
PROC: 0DB68ZX Excision of Stomach, Via Natural or Artificial Opening Endoscopic, Diagnostic (ICD-10-PCS; principal; 2017-04-02 16:00)
DX: K31.1 Adult hypertrophic pyloric stenosis (principal); K29.00 Acute gastritis without bleeding; B96.81 Helicobacter pylori [H. pylori] as the cause of diseases classified elsewhere; E11.9 Type 2 diabetes mellitus without complications; I25.10 Atherosclerotic heart disease of native coronary artery without angina pectoris; E78.5 Hyperlipidemia, unspecified; E78.00 Pure hypercholesterolemia, unspecified; Z95.5 Presence of coronary angioplasty implant and graft; I25.2 Old myocardial infarction; Z79.82 Long term (current) use of aspirin

== ENCOUNTER 2017-11-21 07:59 | Emergency (ER) | payer MEDICARE ==
[2017-11-21 08:03] VITALS: BMI 29.0
[2017-11-21 08:06] VITALS: RESP 18; TEMP 97.7
[2017-11-21 08:51] LABS: BASO # 0.1 K/uL (0.0-0.2); BASO % 1.1 % (0.0-2.0); EOS # 0.3 K/uL (0.0-0.7); EOS % 6.4 % (0.0-4.0); LYMPH % 39.8 % (20.0-40.0); MEAN CELL VOLUME 87.7 fL (80.0-94.0); MEAN CORPUSCULAR HEMOGLOBIN 29.9 pg (27.0-31.0); MEAN PLATELET VOLUME 8.3 fL (7.2-11.7); MONO # 0.3 K/uL (0.0-0.8); MONO % 6.6 % (0.0-10.0); NEUT # 2.3 K/uL (1.8-7.0); NEUT % 46.1 % (50.0-75.0); NRBC % 0.1 % (0.0-2.0); RBC 5.37 Mil/uL (4.40-5.90); RED CELL DISTRIBUTION WIDTH 14.1 % (11.5-14.5); WHITE BLOOD COUNT 5.1 K/uL (4.8-10.8)
[2017-11-21 09:04] LABS: PROTHROMBIN TIME 11.1 SECONDS (9.7-12.2)
[2017-11-21 09:08] LABS: ALB/GLOB RATIO 1.6 (1.0-2.1); ALBUMIN 4.3 g/dL (3.5-5.0); ALT/SGPT 48 U/L (21-72); AST/SGOT 37 U/L (17-59); BLOOD UREA NITROGEN 6 mg/dL (9-20); CALCIUM 9.4 mg/dl (8.6-10.4); GFR AFRICAN-AMERICAN > 60; GFR NON-AFRICAN AMERICAN > 60
[2017-11-21 09:17] LABS: CK-MB 0.46 ng/mL (0.0-3.38)
--- NOTE | 2017-11-21 09:47 | CT ---
PROCEDURE: CT HEAD WITHOUT CONTRAST. HISTORY: SEVERE HEADACHE . COMPARISON: No prior TECHNIQUE: Axial computed tomography images were obtained through the head/brain without intravenous contrast. Radiation dose: Total exam DLP = 853 mGy-cm. This CT exam was performed using one or more of the following dose reduction techniques: Automated exposure control, adjustment of the mA and/or kV according to patient size, and/or use of iterative reconstruction technique. FINDINGS: HEMORRHAGE: No acute parenchymal, subarachnoid nor extra-axial hemorrhage. BRAIN: Minor chronic periventricular and subcortical white matter ischemic changes. No evidence of large acute infarct. No obvious parenchymal nor extra-axial mass or collection seen on this noncontrast study. Mild moderate generalized volume loss. Minor vascular calcifications both carotid siphons. VENTRICLES: No obstructive hydrocephalus. CALVARIUM: No acute calvarial fractures PARANASAL SINUSES: Small focus of polypoid like mucosal thickening left maxillary sinus. Minimal mucosal thickening seen within several ethmoid air cells MASTOID AIR CELLS: Unremarkable as visualized. No inflammatory changes. OTHER FINDINGS: None. IMPRESSION: No acute intracranial hemorrhage. Minor chronic periventricular and subcortical white matter ischemic changes. Mild moderate generalized volume loss.
--- NOTE | 2017-11-21 09:53 | C.PDOC ---
History Of Present Illness Patient presents to ED c/o frontal headache, lightheadness, and mild upper abdominal pain since yesterday night. He denies chest pain, SOB, palpitations, cough, fever, nausea/vomiting/diarrhea, dysuria, facial droop, slurred speech, extremity weakness, sensory changes, dizziness, visual changes. Time Seen by Provider: 11/21/17 08:06 Chief Complaint (Nursing): Dizziness/Lightheaded History Per: Patient History/Exam Limitations: no limitations Current Symptoms Are (Timing): Still Present Past Medical History Reviewed: Historical Data, Nursing Documentation, Vital Signs Vital Signs: Last Vital Signs Temp 97.7 F 11/21/17 08:04 Pulse 70 11/21/17 09:59 Resp 18 11/21/17 09:59 BP 129/82 11/21/17 09:59 Pulse Ox 97 11/24/17 09:22 - Medical History PMH: Diabetes, HTN, Hypercholesterolemia Surgical History: Coronary Stent (x2= 2014) - [facility] Procedures DILATION OF 1 COR ART WITH DRUG-ELUT INTRALUM, PERC APPROACH (03/01/15) EXCISION OF STOMACH, ENDO, DIAGN (04/02/17) INTRODUCTION OF VASOPRESSOR INTO PERIPH VEIN, PERC APPROACH (03/01/15) MEASURE CARDIAC SAMPL & PRESSURE, BILATERAL, PERC (03/01/15) PLAIN RADIOGRAPHY OF SINGLE COR ART USING OTH CONTRAST (03/01/15) Family History: States: No Known Family Hx - Social History Hx Tobacco Use: No Hx Alcohol Use: No Hx Substance Use: No - Immunization History Hx Tetanus Toxoid Vaccination: No Hx Influenza Vaccination: Yes Hx Pneumococcal Vaccination: No Review Of Systems Constitutional: Negative for: Fever, Chills Cardiovascular: Negative for: Chest Pain, Palpitations Respiratory: Negative for: Cough, Shortness of Breath Gastrointestinal: Positive for: Nausea. Negative for: Vomiting, Abdominal Pain , Diarrhea Skin: Negative for: Rash Neurological: Positive for: Headache, Dizziness (lightheadedness). Negative for : Weakness, Numbness, Incoordination, Change in Speech, Confusion, Seizures, Altered Mental Status Physical Exam - Physical Exam Appears: Well, Non-toxic, No Acute Distress Skin: Normal Color, Warm, Dry Head: Atraumatic, Normacephalic Eye(s): bilateral: Normal Inspection, PERRL, EOMI Oral Mucosa: Moist Cardiovascular: Rhythm Regular Respiratory: Normal Breath Sounds, No Rales, No Rhonchi, No Wheezing Gastrointestinal/Abdominal: Normal Exam, Bowel Sounds, Soft, No Tenderness Extremity: Normal ROM, No Pedal Edema, No Calf Tenderness Pulses: Left Dorsalis Pedis: Normal, Right Dorsalis Pedis: Normal Neurological/Psych: Oriented x3, Normal Speech, Normal Cognition, Normal Cranial Nerves, No Cerebellar Signs, Normal Motor, Normal Sensation, Normal Reflexes Gait: Steady ED Course And Treatment - Laboratory Results Result Diagrams: 11/21/17 08:44 11/21/17 08:44 ECG: Interpreted By Me, Viewed By Me (NSR 66bpm, normal axis, no acute ST/T wave changes) ECG Interpretation: Normal O2 Sat by Pulse Oximetry: 97 (RA) Pulse Ox Interpretation: Normal - CT Scan/US CT HEAD Other Rad Studies (CT/US): Read By Radiologist, Radiology Report Reviewed CT/US Interpretation: Accession No. : [id number]. Patient Name / ID : ALBERTO THOMAS / [id number]. Exam Date : 11/21/2017 08:52:24 ( Approved ). Study Comment : Sex / Age : M / 77Y. Creator : Andrei Mcintyre MD. Dictator : Environmental Journalist : Housekeeper Home : Andrei Mcintyre MD. Approver2 : Report Date : 11/21/2017 09:45:51. My Comment : . PROCEDURE: CT HEAD WITHOUT CONTRAST. HISTORY: SEVERE HEADACHE . COMPARISON: No prior. TECHNIQUE: Axial computed tomography images were obtained through the head/ brain without intravenous contrast. Radiation dose: Total exam DLP = 853 mGy- cm. This CT exam was performed using one or more of the following dose reduction techniques: Automated exposure control, adjustment of the mA and/or kV according to patient size, and/or use of iterative reconstruction technique. FINDINGS: HEMORRHAGE: No acute parenchymal, subarachnoid nor extra-axial hemorrhage. BRAIN: Minor chronic periventricular and subcortical white matter ischemic changes. No evidence of large acute infarct. No obvious parenchymal nor extra-axial mass or collection seen on this noncontrast study. Mild moderate generalized volume loss. Minor vascular calcifications both carotid siphons. VENTRICLES: No obstructive hydrocephalus. CALVARIUM: No acute calvarial fractures. PARANASAL SINUSES: Small focus of polypoid like mucosal thickening left maxillary sinus. Minimal mucosal thickening seen within several ethmoid air cells. MASTOID AIR CELLS: Unremarkable as visualized. No inflammatory changes. OTHER FINDINGS: None. IMPRESSION: No acute intracranial hemorrhage. Minor chronic periventricular and subcortical white matter ischemic changes. Mild moderate generalized volume loss. Progress Note: Blood work, EKG, CT head ordered and reviewed. Patient given PO Tylenol. Reevaluation Time: 10:00 Reassessment Condition: Improved (On reassessment, patient is resting comfortably and states his headache has resolved and he feels better. He is ambulating normally in ED. Blood work, EKG, CT head without acute findings. Patient is well appearing, wiuth normal neuro exam and vitals, and is comfortable being discharged home. He was instructed to follow up with PMD in 1 -2 days, and understands he should return to ED if symptoms worsen.) Disposition Counseled Patient/Family Regarding: Studies Performed, Diagnosis, Need For Followup - Disposition Referrals: Sarina Mina MD [Staff Provider] - Disposition: HOME/ ROUTINE Disposition Time: 10:00 Condition: STABLE Additional Instructions: FOLLOW UP WITH YOUR DOCTOR IN 1-2 DAYS RETURN TO EMERGENCY ROOM IF SYMPTOMS WORSEN SEGUIMIENTO CON BEASLEY MDICO EN 1-2 HEDRICK REGRESE AL RODRIGO DE EMERGENCIA SI LOS SNTOMAS EMPEORAN Instructions: Headache, Adult (DC) Forms: [facility] (Tajik), General Discharge Instructions Print Language: MARTINIQUAIS - POA Present On Arrival: None - Clinical Impression Clinical Impression: Headache
[2017-11-21 10:00] VITALS: BP 129/82; PULSE 70
[2017-11-21 10:03] VITALS: O2SAT 97
--- NOTE | 2017-11-22 21:27 | CARD ---
APPROVED REPORT EKG Measurement Heart [id number] IN [id number] <Conclusion> Normal sinus rhythm Nonspecific ST abnormality Abnormal ECG
== END 2017-11-21 10:23 | disposition home or self-care (01) ==
LOC: C.ER 07:59
DX: R51 Headache (principal)